=== PATIENT | male | born 1995 | race Caucasian/White ===

== ENCOUNTER 2017-01-22 08:17 | Emergency (ER) | payer OTHER ==
[2017-01-22 08:22] VITALS: BP 130/58; PULSE 88; TEMP 99.3; BMI 36.0
--- NOTE | 2017-01-22 08:46 | PDOC ---
History of Present Illness - General Chief Complaint: Pain, Acute Stated Complaint: KNEE PAIN Time Seen by Provider: 01/22/17 08:39 History Source: Patient Exam Limitations: No Limitations - History of Present Illness Initial Comments: 01/22/17 09:25 CHIEF COMPLAINT: Left medial knee pain. HISTORY OF PRESENT ILLNESS: Patient is a 21 y/o male, On December 14, patient reports that [place]. Sustained injury to left medial knee states that area was hard and was seen by the nurse at his [employer] and told him he had "hematoma" patient reports area was getting better yesterday ran for the first time and pain increased with "stiffness" to area. Now patient unable to bear weight to area. Denies any shortness of breath, no chest pain, no calf pain. REVIEW OF SYSTEMS: GENERAL: Afebrile, A&O x3 RESPIRATORY: No cough, wheezing, or hemoptysis. CARDIAC: No CP or SOB MUSCULOSKELETAL: Pain to left medial and posterior knee SKIN : Erythema to the left medial knee, with hardenned area, edema to same, no bruising, no deformity. NEUROLOGICAL: Denies any numbness or tingling. PHYSICAL EXAM: GENERAL: The patient is awake, alert, and fully oriented, in no acute distress. HEAD: Normal with no signs of trauma. RESPIRATORY: Lungs clear bilaterally no rhonchi, rales, or wheezes CARDIAC: S1-S2 audible, no murmur rub or gallop EXTREMITIES: Decreased range of motion to left knee related to pain, no fluid appreciated, no bulge sign. No pain to superior or inferior patella. Negative drop test. Negative posterior leg test. No joint laxity noted, no ecchymosis, no deformity, no abrasions ,no edema. +3 popliteal pulse. Negative Homans sign. No calf pain or tenderness, Erythema and palpable hardened area to the left medial knee. MUSCULOSKELETAL: No spinal point tenderness. SKIN: Warm, Dry, normal turgor, no erythema, edema, hardened area to the left medial knee, no bruising. Past History - Past Medical History Allergies/Adverse Reactions: Allergies Allergy/AdvReac Type Severity Reaction Status Date / Time No Known Allergies Allergy Verified 01/22/17 08:24 Home Medications: Ambulatory Orders Oxycodone HCl/Acetaminophen [Percocet 5-325 mg Tablet] 1 - 2 tab PO Q4H #20 tablet MDD 12 01/22/17 Other medical history: PATIENT DENIES MEDICAL HISTORY - Surgical History Appendectomy: Yes - Psycho/Social/Smoking Cessation Hx Suicidal Ideation: No Smoking History: Never smoked Hx Alcohol Use: No Drug/Substance Use Hx: No *Physical Exam - Vital Signs Last Vital Signs Temp Pulse Resp BP Pulse Ox 99.3 F 88 18 130/58 97 01/22/17 08:19 01/22/17 08:19 01/22/17 08:19 01/22/17 08:19 01/22/17 08:19 ED Treatment Course - RADIOLOGY Radiology Studies Ordered: Category Date Time Status KNEE 3 POS-LEFT [RAD] Stat Radiology 01/22/17 08:40 Ordered Medical Decision Making - Medical Decision Making 01/22/17 08:45 A/P : Left medial knee pain, hardened area. Hematoma vs DVT. Xray US 01/22/17 12:52 There is a fluid collection noted to left medial knee via ultrasound as per Dr. Kelley, spoke to Miguel SONG for Dr. Cleveland wants patient to come over to office immediately upon discharge today we'll DC patient home, Karri Cleveland to review x-ray although wet read as negative. Percocet as needed for pain. I discussed the physical exam findings, ancillary test results and final diagnoses with the patient. I answered all of the patient's questions. The patient was satisfied with the care received and felt comfortable with the discharge plan and treatment plan. The patient will call to arrange follow-up and will return to the Emergency Department with any new, persistent or worsening symptoms. *DC/Admit/Observation/Transfer Diagnosis at time of Disposition: Traumatic hematoma of knee Qualifiers: Encounter type: initial encounter Laterality: left Qualified Code(s): S80.02XA - Contusion of left knee, initial encounter - Discharge Dispostion Disposition: HOME Condition at time of disposition: Good Admit: No - Prescriptions Prescriptions: Oxycodone HCl/Acetaminophen [Percocet 5-325 mg Tablet] 1 - 2 tab PO Q4H #20 tablet MDD 12 - Referrals Referrals: Manny Cleveland MD [Staff Physician] - Deyanira Weber MD [Primary Care Provider] - - Patient Instructions Additional Instructions: Please go immediately to the office of Dr. Cristofer across the street in the [facility], they're awaiting your arrival. - Post Discharge Activity Work/School Note: Back to School
== END 2017-01-22 11:09 | disposition home or self-care (01) ==
LOC: JERFT 08:17 → JER 08:17 → JERFT 11:09
DX: S80.02XA Contusion of left knee, initial encounter (principal); W13.8XXA Fall from, out of or through other building or structure, initial encounter; Y93.89 Activity, other specified; Y92.410 Unspecified street and highway as the place of occurrence of the external cause
CPT/HCPCS: 73562-TC-LT; 93971-TC; 99281-25

== ENCOUNTER 2017-01-30 10:28 | Emergency (ER) | payer OTHER ==
[2017-01-30 10:48] VITALS: BP 127/78; PULSE 78; TEMP 98.3; BMI 36.0
[2017-01-30] MEDS ORDERED: LIDOCAINE HCL 1%, 10 MG/ML (50 mL VIAL) SQ ONE (11:14)
[2017-01-30] MEDS ORDERED: LIDOCAINE HCL/PF 1% SDV 5ML VIAL ONE (11:16)
[2017-01-30] MEDS ORDERED: SULFAMETHOXAZOLE/TRIMETHOPRIM 800MG/160MG D.S. TABLET PO ONE (11:45)
[2017-01-30] MEDS ORDERED: CEPHALEXIN MONOHYDRATE 500 MG CAPSULE (UD) PO ONE (11:45)
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
[2017-01-30] MEDS ORDERED: SULFAMETHOXAZOLE/TRIMETHOPRIM 800MG/160MG D.S. TABLET ONE (11:54)
[2017-01-30] MEDS ORDERED: CEPHALEXIN MONOHYDRATE 250 MG CAPSULE (FP) ONE (12:08)
== END 2017-01-30 12:14 | disposition home or self-care (01) ==
LOC: JER 10:28
PROC: 0H9LXZZ Drainage of Left Lower Leg Skin, External Approach (ICD-10-PCS; principal; 2017-01-30)
DX: L02.416 Cutaneous abscess of left lower limb (principal)
CPT/HCPCS: 10060; 87070; 87186; 87205; 99281-25

== ENCOUNTER 2017-02-01 08:59 | Emergency (ER) | payer OTHER ==
[2017-02-01 09:10] VITALS: BP 146/65; PULSE 59; TEMP 98.4; BMI 36.0
--- NOTE | 2017-02-01 10:41 | PDOC ---
Suture Removal/Wound Check HPI - History of Present Illness Chief Complaint: Revisit,Wound Recheck Stated Complaint: PACKAGE REMOVAL Time Seen by Provider: 02/01/17 10:17 History Source: Yes: Patient Exam Limitations: Yes: No Limitations Treated at: [facility] Date of Last ED visit: 01/30/17 - Previous ED Treatment Type of procedure performed on last visit: Yes: I&D of Abscess Tetanus Immunization: Yes: Up to Date Antibiotics Prescribed: Yes Past History - Past Medical History Allergies/Adverse Reactions: Allergies No Known Allergies Allergy (Verified 02/01/17 09:07) Home Medications: Ambulatory Orders Oxycodone HCl/Acetaminophen [Percocet 5-325 mg Tablet] 1 - 2 tab PO Q4H #20 tablet MDD 12 01/22/17 Cephalexin [Keflex] 500 mg PO TID #21 capsule NS MDD 3 01/30/17 Sulfamethoxazole/Trimethoprim [Bactrim Ds -] 1 tab PO BID #14 tablet 01/30/17 - Immunization History Tetanus Status: Unknown - Social History Smoking Status: Never smoked Suture Removal/Wound Check PE - Physical Exam Laceration/Wound Check Symptoms: reports: Pain, Improved. denies: Discharge, Bleeding Comments: 02/01/17 10:43 pt states wound has improved, redness and leg tightness has decreased pt denies any fever Current Severity Level: Moderate Maximum Severity Level: Severe Location of Laceration/Wound: left: Leg (lower medial calf area ) Pain Radiation: None *Review of Systems - Review of Systems Able to Perform ROS?: Yes Constitutional: No: Symptoms Reported HEENTM: No: Symptoms Reported Respiratory: No: Symptoms reported Cardiac (ROS): No: Symptoms Reported ABD/GI: No: Symptoms Reported : No: Symptoms Reported Musculoskeletal: Yes: See HPI Procedures - Additional Procedures Progress: 02/01/17 10:44 packing removed from wound on left lower leg, no drainage, scant serous on the gauze re-dressed with sterile bandage Medical Decision Making - Medical Decision Making 02/01/17 10:35 cc: packing removal left lower leg abscess seen 2 days ago in ER packing removed scant serous drainage, wound is well healing no pus drainage or eschar wound redressed with sterile gauze I spoke with wound care clinic at this hospital and pt can be seen at 12 pm on February 08 patient aware of the appointment pt also is followed by ortho I will have pt follow with them this week continue antibiotics and pain meds elevate the leg 02/01/17 10:37 02/01/17 10:44 *DC/Admit/Observation/Transfer Diagnosis at time of Disposition: Visit for wound check - Referrals Referrals: Deyanira Weber MD [Primary Care Provider] - Manny Cleveland MD [Staff Physician] - - Patient Instructions Additional Instructions: continue the antibiotics and the pain medication elevate the leg follow with this week call today to make appointment you also have an appointment for February 08 at 12 pm in the wound care clinic [facility] if you are unable to make the appointment call them to change it at [phone]
[2017-02-01] MEDS ORDERED: OXYCODONE/APAP 5/325MG COMBO TABLET ONE (10:50)
[2017-02-01] MEDS ORDERED: OXYCODONE/APAP 5/325MG COMBO TABLET PO ONE (11:22)
== END 2017-02-01 11:21 | disposition home or self-care (01) ==
LOC: JERFT 08:59
DX: Z48.01 Encounter for change or removal of surgical wound dressing (principal)
CPT/HCPCS: 99281-25

== ENCOUNTER 2017-02-05 15:08 | Emergency (ER) | payer OTHER ==
[2017-02-05 15:15] VITALS: BP 137/71; PULSE 68; TEMP 98.5; BMI 34.3
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
== END 2017-02-05 17:04 | disposition home or self-care (01) ==
LOC: JERFT 15:08
DX: Z09 Encounter for follow-up examination after completed treatment for conditions other than malignant neoplasm (principal)
CPT/HCPCS: 99281-25

== ENCOUNTER 2017-09-22 13:48 | Emergency (ER) | payer OTHER ==
[2017-09-22 14:31] VITALS: BP 123/76; PULSE 89; TEMP 99.5; BMI 36.8
--- NOTE | 2017-09-22 14:31 | PDOC ---
Rapid Medical Evaluation Time Seen by Provider: 09/22/17 14:28 Medical Evaluation: Allergies Allergy/AdvReac Type Severity Reaction Status Date / Time No Known Allergies Allergy Verified 02/05/17 15:16 09/22/17 14:28 I have performed a brief in-person evaluation of this patient. The patient presents with a chief complaint of: Sore throat w/ cough, pleuritic CP and fever x 2 days. No sob. No Pertinent physical exam findings:stable w/ unremarkable exam I have ordered the following:nothing The patient will proceed to the ED for further evaluation.
[2017-09-22] MEDS ORDERED: ACETAMINOPHEN 500 MG TABLET (FP) PO ONE (16:05)
[2017-09-22] MEDS ORDERED: ACETAMINOPHEN 500 MG TABLET (FP) ONE (16:09)
--- NOTE | 2017-09-22 16:20 | PDOC ---
History of Present Illness - General Chief Complaint: Sore Throat Stated Complaint: THROAT PAIN Time Seen by Provider: 09/22/17 14:28 History Source: Patient Exam Limitations: No Limitations - History of Present Illness Initial Comments: 09/22/17 16:17 This is a 21-year-old fully immunized gentleman without significant past medical history of presents to emergency department with 2 days of sore throat, nasal congestion, chills, rhinorrhea, sneezing, coughing with green sputum, fatigue, body aches, retching. He denies anorexia, vomiting, diarrhea, abdominal pain, headaches, blurry vision. 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 He does not remember any of his students experiencing any symptoms. PMH: Denies PSH: Denies NKDA Does not take medication Tobacco: Denies EtOH: Denies Drugs: Denies Past History - Past Medical History Allergies/Adverse Reactions: Allergies Allergy/AdvReac Type Severity Reaction Status Date / Time No Known Allergies Allergy Verified 09/22/17 14:28 Home Medications: Ambulatory Orders Oseltamivir Phosphate [Tamiflu -] 75 mg PO BID #10 capsule 09/22/17 CVA: No COPD: No - Surgical History Appendectomy: Yes - Immunization History Immunization Up to Date: Yes - Suicide/Smoking/Psychosocial Hx Smoking History: Never smoked Have you smoked in the past 12 months: No Information on smoking cessation initiated: No Hx Alcohol Use: No Drug/Substance Use Hx: No Substance Use Type: None Review of Systems - Review of Systems Able to Perform ROS?: Yes Is the patient limited Sami proficient: No Constitutional: Yes: See HPI HEENTM: Yes: See HPI Respiratory: Yes: See HPI Cardiac (ROS): No: Symptoms Reported ABD/GI: Yes: See HPI : No: Symptoms Reported Musculoskeletal: No: Symptoms Reported Integumentary: No: Symptoms Reported Neurological: No: Symptoms reported *Physical Exam - Vital Signs Last Vital Signs Temp Pulse Resp BP Pulse Ox 99.5 F 89 16 123/76 96 09/22/17 14:28 09/22/17 14:28 09/22/17 14:28 09/22/17 14:28 09/22/17 14:28 - Physical Exam General Appearance: Yes: Appropriately Dressed. No: Apparent Distress HEENT: positive: TMs Normal, Pharyngeal Erythema, Tonsillar Exudate, Tonsillar Erythema, Nasal Congestion, Rhinorrhea. negative: Sinus Tenderness Neck: positive: Trachea midline, Supple Respiratory/Chest: positive: Lungs Clear, Normal Breath Sounds. negative: Respiratory Distress, Accessory Muscle Use Cardiovascular: positive: Regular Rhythm, Regular Rate. negative: Murmur Gastrointestinal/Abdominal: positive: Normal Bowel Sounds, Soft. negative: Tender Musculoskeletal: positive: Normal Inspection. negative: CVA Tenderness Extremity: positive: Normal Inspection Integumentary: positive: Normal Color, Dry, Warm Neurologic: positive: Fully Oriented, Alert, Normal Mood/Affect, Normal Response , Motor Strength 12/25 ED Treatment Course - Medications Given in the ED: ED Medications Discontinued Medications Generic Name Dose Route Start Last Admin Trade Name Freq PRN Reason Stop Dose Admin Acetaminophen 1,000 mg 09/22/17 16:05 09/22/17 16:11 Tylenol - PO 09/22/17 16:06 1,000 mg ONCE ONE Administration Medical Decision Making - Medical Decision Making 09/22/17 16:14 A/P: 21-year-old without past medical history with 2 days of sore throat, nasal congestion, chills, rhinorrhea, sneezing, coughing with green sputum, fatigue, body aches and wretching. Oropharynx reveals pharyngeal erythema, tonsillar erythema, tonsillar exudate, 3 + tonsils swelling. Submandibular lymphadenopathy present. No cervical lymphadenopathy present. Otherwise normal exam Influenza testing Rapid strep testing Tylenol 1 g orally now Reassess 09/22/17 16:50 Influenza testing positive for influenza B. Patient feels better at present. I will prescribed Tamiflu 75 mg twice a day for 5 days. Discharge I discussed the physical exam findings, ancillary test results and final diagnoses with the patient. I answered all of the patient's questions. The patient was satisfied with the care received and felt comfortable with the discharge plan and treatment plan. The patient will call his doctor within 96 hours to arrange follow-up and will return to the Emergency Department with any new, persistent or worsening symptoms. *DC/Admit/Observation/Transfer Diagnosis at time of Disposition: Influenza B - Discharge Dispostion Disposition: HOME Condition at time of disposition: Stable Admit: No - Prescriptions Prescriptions: Oseltamivir Phosphate [Tamiflu -] 75 mg PO BID #10 capsule - Referrals Referrals: Roland Lester MD [Staff Physician] - - Patient Instructions Additional Instructions: Rest, drink lots of fluids: Teas, water, soups, Pedialyte Saltwater gargles Steamy showers/seem to face break up mucus Avoid contact with others until fevers and cough resolved Lots of handwashing and good hygiene Continue [id number] medications for symptomatic relief Tylenol or Motrin for fever and pain Tamiflu 75mg twice a day for 5 days. Followup with private physician in one to 2 days as needed Return to emergency department for worsened symptoms, fevers, dehydration - Post Discharge Activity
== END 2017-09-22 16:55 | disposition home or self-care (01) ==
LOC: JERFT 13:48
DX: J10.1 Influenza due to other identified influenza virus with other respiratory manifestations (principal)
CPT/HCPCS: 87070; 87430; 87804; 99281-25

== ENCOUNTER 2020-05-26 02:04 | Emergency (ER) | payer OTHER ==
--- OUTSIDE RECORDS SUMMARY | 2020-05-26 02:13 | XMS ---
:1995 Author Organization [facility] Support Name Relationship Address Phone AMANDEEP MADRIGAL Unavailable [address] [id number] [place] [address] CHANI GONZALEZ BROTHER [address] [place] [address] Re-disclosure Warning The records that you are about to access may contain information from federally- assisted alcohol or drug abuse programs. If such information is present, then the following federally mandated warning applies: This information has been disclosed to you from records protected by federal confidentiality rules (42 CFR part 2). The federal rules prohibit you from making any further disclosure of this information unless further disclosure is expressly permitted by the written consent of the person to whom it pertains or as otherwise permitted by 42 CFR part 2. A general authorization for the release of medical or other information is NOT sufficient for this purpose. The Federal rules restrict any use of the information to criminally investigate or prosecute any alcohol or drug abuse patient.The records that you are about to access may contain highly sensitive health information, the redisclosure of which is protected by Article 27-F of the [facility] Public Health law. If you continue you may haveaccess to information: Regarding HIV / AIDS; Provided by facilities licensed or operated by the [facility] Office of Mental Health; or Provided by the [facility] Office for People With Developmental Disabilities. If such information is present, then the following [facility] mandated warning applies: This information has been disclosed to you from confidential records which are protected by state law. State law prohibits you from making any further disclosure of this information without the specific written consent of the person to whom it pertains, or as otherwise permitted by law. Any unauthorized further disclosure in violation of state law may result in a fine or correction sentence or both. A general authorization for the release of medical or other information is NOT sufficient authorization for further disclosure. Insurance Providers Payer name Policy type Policy ID Covered Covered alliance party's Policy P katie / Coverage alliance party ID relationship to Ash Inf ormation type ash JEANNINE [id number] [facility] NON CAP
[2020-05-26 02:30] VITALS: BP 164/105; PULSE 116; TEMP 98; BMI 26.6
[2020-05-26] MEDS ORDERED: LABETALOL HCL 5 MG/1 ML (100MG/20 ML VIAL) IVPUSH ONE (02:37)
--- NOTE | 2020-05-26 02:37 | PDOC ---
Attending Attestation - Resident Resident Name: Dontae Herrmann - ED Attending Attestation I have performed the following: I have examined & evaluated the patient, The case was reviewed & discussed with the resident, I agree w/resident's findings & plan - HPI HPI: 05/26/20 03:33 PT COMES WITH CHEST PAIN. HE IS SWEATING HE HAS LEFT ABD PAIN HE HAS BACK PAIN PT IS MORBIDLY OBESE AND STRESSED AND HE STATES THAT HE HAS ANXIETY BP IS 200S ON ARRIVAL AFTER A FEW MINUTES BP COMES DOWN TO 180s AFTER A SLNTG IT IS 140S AFTER MORPHINE AND BETA GIANNA IV IT IS 120S PT IS FEELING BETTER AND STATES THAT HE HAS BEEN EXERCISING THOUGH HE EATS UNWELL: DONUT, BEEF GERMAN SOUP AND FISH TODAY PT HAD APPENDECTOMY A CHILD NO PMHX - Physicial Exam PE: 05/26/20 03:35 OBESE AFEBRILE HEART RRR LUNGS CTAB ABD SOFT NT ND LEFT SIDED ABD PAIN NO FLANK PAIN NEURO EXAM NORMAL - Medical Decision Making 05/26/20 03:38 PT FEELING BETTER WE WILL GET CTA TO R/O AORTIC ANEURYSM CBC NORMAL CHEM PENDING 05/26/20 05:01 Patient Name: PAM GONZALEZ THIS IS A PRELIMINARY REPORT DATE OF SERVICE: 2020-05-26 03:34:30 IMAGES: [id number] EXAM: CT of the chest abdomen and pelvis without contrast and CT angiography of the chest abdomen and pelvis HISTORY: Rule out dissection COMPARISON: None. FINDINGS: Chest: Negative for thoracic aortic aneurysm or dissection. Lungs are clear of acute disease. No pulmonary infiltrates. No pleural effusions. No pneumothorax or pneumomediastinum. Heart size is normal. No pericardial effusions. Osseous structures are intact. Abdomen pelvis: Negative for abdominal aortic aneurysm or dissection. The major visceral vessels that emanate from the abdominal aorta are patent. Fatty mildly enlarged liver. Normal spleen. Normal pancreas. Normal adrenal glands. Normal gallbladder. Normal kidneys urinary tracts and urinary bladder. No bowel obstruction or inflammation. No free intraperitoneal air or free fluid. Osseous structures are intact. Discharge - Discharge Information Problems reviewed: Yes Clinical Impression/Diagnosis: Fatty liver Condition: Improved Disposition: HOME - Follow up/Referral Referrals: Deyanira Weber MD [Primary Care Provider] - - Patient Discharge Instructions Patient Printed Discharge Instructions: DI for Nonalcoholic Fatty Liver Disease, Eating a Diet Rich in Fruits and Vegetables - Post Discharge Activity
[2020-05-26] MEDS ORDERED: morphine CARPU-JECT 2 MG/1 ML DISP.SYRIN IVPUSH ONE (02:38)
[2020-05-26] MEDS ORDERED: NITROGLYCERIN SUBLINGUAL 1/150 0.4 MG TAB SL ONE (02:45)
--- NOTE | 2020-05-26 03:06 | PDOC ---
History of Present Illness - General Chief Complaint: Pain, Acute Stated Complaint: ABDOMINAL PAIN Time Seen by Provider: 05/26/20 02:09 History Source: Patient Exam Limitations: No Limitations - History of Present Illness Initial Comments: 05/26/20 03:01 24M w/o PMH presenting with sudden onset epigastric pain radiating straight to the back for about 3 hours. Described as a tightness. Denies chest pain, sob, headache, lightheadedness, n/v/d. Denies etoh, smoking, ilicit drug use. PSHx - appendectomy Past History - Medical History Allergies/Adverse Reactions: Allergies Allergy/AdvReac Type Severity Reaction Status Date / Time No Known Allergies Allergy Verified 05/26/20 02:18 Home Medications: Ambulatory Orders Oseltamivir Phosphate [Tamiflu -] 75 mg PO BID #10 capsule 09/22/17 CVA: No COPD: No - Surgical History Appendectomy: Yes - Immunization History Immunization Up to Date: Yes - Psycho-Social/Smoking History Smoking History: Never smoked Have you smoked in the past 12 months: No Information on smoking cessation initiated: No - Substance Abuse Hx (Audit-C & DAST Scrn) How often the patient has a drink containing alcohol: Never Score: In Men: 4 or > Positive; In Women: 3 or > Positive: 0 Screen Result (Pos requires Nsg. Audit-10AR): Negative In the last yr the pt used illegal drug/Rx for NonMed reason: No Score: Yes response is considered Positive: 0 Screen Result (Positive result requires Nsg. DAST-10): Negative Review of Systems - Review of Systems Comments:: CONSTITUTIONAL: Denies F / C HEENT: Denies lightheadedness, dizziness, sore throat, rhinorrhea RESP: Denies SOB, cough CARD: Denies chest pain GI: +epigastric pain. Denies N / V / D, bloody stool, inability to tolerate PO : Denies dysuria, hematuria, frequency NEURO: Denies numbness, tingling, weakness MSK: +back pain SKIN: Denies rashes *Physical Exam - Vital Signs Last Vital Signs Temp Pulse Resp BP Pulse Ox 98.0 F 116 H 20 164/105 H 98 05/26/20 02:18 05/26/20 02:18 05/26/20 02:18 05/26/20 02:18 05/26/20 02:18 - Physical Exam GEN: uncomfortable, diaphoretic, in moderate distress, AAOx3. HEENT: NC/AT, EOMI, PERRL. No facial asymmetry. Normal voice. Supple neck w/ FROM. CV: S1/S2, RRR, no m/r/g LUNG: CTAB, no wheezes, crackles, rales, rhonchi. GI: Soft, ndnt, +BS, no guarding, no rebound. MSK: 2+ distal pulses. No obvious deformities of all extremities. SKIN: Warm, dry, no rashes appreciated. PSYCH: Normal mood and affect. NEURO: Moving all extremities well. ambulates w/ normal gait ED Treatment Course - LABORATORY CBC & Chemistry Diagram: 05/26/20 03:08 05/26/20 03:08 Medical Decision Making - Medical Decision Making 24M with sudden onset epigastric pain radiating to the back x3 hours. DDX - pancreatitis, AoD, AAA; consider PUD, gastritis, ACS; unlikely biliary - CBC, CMP, Cardiac, Lipase, coags, T&S - CTA - morphine, labetalol, nitroglycerin - EKG 02:29 HR 111 sinus tachycardia; intervals and axis wnl, no LAYLA/D, no TWI 05/26/20 05:[address] IOC IMPRESSION as follows EXAM: CT of the chest abdomen and pelvis without contrast and CT angiography of the chest abdomen and pelvis HISTORY: Rule out dissection COMPARISON: None. FINDINGS: Chest: Negative for thoracic aortic aneurysm or dissection. Lungs are clear of acute disease. No pulmonary infiltrates. No pleural effusions. No pneumothorax or pneumomediastinum. Heart size is normal. No pericardial effusions. Osseous structures are intact. Abdomen pelvis: Negative for abdominal aortic aneurysm or dissection. The major visceral vessels that emanate from the abdominal aorta are patent. Fatty mildly enlarged liver. Normal spleen. Normal pancreas. Normal adrenal glands. Normal gallbladder. Normal kidneys urinary tracts and urinary bladder. No bowel obstruction or inflammation. No free intraperitoneal air or free fluid. Osseous structures are intact. One or more of the following dose reduction techniques were used: automated exposure control, adjustment of the mA and/or kV according to patient size, use of iterative reconstructive technique. THIS DOCUMENT HAS BEEN ELECTRONICALLY SIGNED Dontae Samaniego MD 05/26/2020 04:58 SAHRA Zeng Please call [facility] [phone] ([phone]) with questions. INTERPRETING RADIOLOGIST: Dontae Samaniego MD Electronically Signed: May 26, 2020 04:59AM EDT patient was discharged. Discharge - Discharge Information Problems reviewed: Yes Clinical Impression/Diagnosis: Fatty liver Condition: Improved Disposition: HOME - Follow up/Referral Referrals: Deyanira Weber MD [Primary Care Provider] - - Patient Discharge Instructions Patient Printed Discharge Instructions: Eating a Diet Rich in Fruits and Vegetables, DI for Nonalcoholic Fatty Liver Disease - Post Discharge Activity
[2020-05-26 03:21] LABS: BASO % 0.3 % (0-2.0); EOS % 1.3 % (0-4.5); HEMATOCRIT 47.8 % (35.4-49); HEMOGLOBIN 16.2 GM/dL (11.7-16.9); LYMPH % 14.2 % (8-40); MCH 28.1 pg (25.7-33.7); MCHC 33.9 g/dl (32.0-35.9); MEAN PLT VOLUME 9.7 fl (7.5-11.1); MONO % 5.3 % (3.8-10.2); NEUT % 78.9 % (42.8-82.8); PLATELET COUNT 266 K/MM3 (134-434); RBC 5.76 M/mm3 (4.00-5.60); RDW 13.5 % (11.9-15.9); WHITE BLOOD COUNT 16.2 K/mm3 (4.0-10.0)
[2020-05-26 03:49] LABS: ALBUMIN 4.1 g/dl (3.4-5.0); ALK PHOS 138 U/L (45-117); ANION GAP 8 MMOL/L (8-16); BILIRUBIN,TOTAL 0.5 mg/dL (0.2-1); CALCIUM 8.9 mg/dL (8.5-10.1); CHLORIDE 104 mmol/L (98-107); CO2 28 mmol/L (21-32); CREATININE 0.9 mg/dL (0.55-1.3); GLUCOSE,RANDOM 114 mg/dL (74-106); LIPASE 93 U/L (73-393); SGOT/AST 76 U/L (15-37); SGPT/ALT 98 U/L (13-61); SODIUM 140 mmol/L (136-145)
[2020-05-26 03:52] LABS: INR 1.1 (0.83-1.09)
--- NOTE | 2020-05-26 19:55 | EKG ---
Test Reason : Blood Pressure : / mmHG Vent. Rate : 111 BPM Atrial Rate : 111 BPM P-R Int : 154 ms QRS Dur : 080 ms QT Int : 330 ms P-R-T Axes : 034 049 014 degrees QTc Int : 448 ms SINUS TACHYCARDIA OTHERWISE NORMAL ECG NO PREVIOUS ECGS AVAILABLE Confirmed by LOTUS MARCUM MD ([id number]) on 05/26/2020 7:54:37 PM Referred By: Confirmed By:LOTUS MARCUM MD
== END 2020-05-26 05:23 | disposition home or self-care (01) ==
LOC: JER 02:04
PROC: 3E033NZ Introduction of Analgesics, Hypnotics, Sedatives into Peripheral Vein, Percutaneous Approach (ICD-10-PCS; principal; 2020-05-26)
PROC: 3E033GC Introduction of Other Therapeutic Substance into Peripheral Vein, Percutaneous Approach (ICD-10-PCS; 2020-05-26)
DX: K76.0 Fatty (change of) liver, not elsewhere classified (principal)
CPT/HCPCS: 36415; 71275-TC; 74174-TC; 80053; 82550; 83690; 84484; 85025; 85610; 86850; 86900; 86901; 93005; 93010; 99285-25; Q9967

== ENCOUNTER 2022-02-04 06:20 | Emergency (ER) | payer OTHER ==
[2022-02-04 07:04] VITALS: BP 132/92; PULSE 67; TEMP 97.8; BMI 46.3
[2022-02-04] MEDS ORDERED: LIDOCAINE 5% TOPICAL PATCH TP ONE (08:19)
[2022-02-04] MEDS ORDERED: KETOROLAC TROMETHAMINE 30 MG/1 ML VIAL IM ONE (08:20)
[2022-02-04] MEDS ORDERED: CYCLOBENZAPRINE HCL 10 MG TABLET (FP) PO ONE (08:20)
[2022-02-04] MEDS ORDERED: CYCLOBENZAPRINE HCL 10 MG TABLET (FP) ONE (08:23)
[2022-02-04] MEDS ORDERED: KETOROLAC TROMETHAMINE 30 MG/1 ML VIAL ONE (08:23)
[2022-02-04] MEDS ORDERED: LIDOCAINE 5% TOPICAL PATCH ONE (08:23)
== END 2022-02-04 09:04 | disposition home or self-care (01) ==
LOC: JER 06:20
PROC: 3E023GC Introduction of Other Therapeutic Substance into Muscle, Percutaneous Approach (ICD-10-PCS; principal; 2022-02-04)
DX: S46.012A Strain of muscle(s) and tendon(s) of the rotator cuff of left shoulder, initial encounter (principal); Y99.9 Unspecified external cause status
CPT/HCPCS: 99284-25

== ENCOUNTER 2022-12-10 04:59 | Inpatient (IN) | payer BC ==
[2022-12-10 05:20] VITALS: BMI 41.7
[2022-12-10] MEDS ORDERED: HYDROmorphone HCl 2 MG/ML VIAL IVPUSH ONE (05:31)
[2022-12-10] MEDS ORDERED: PIPERACILLIN/TAZOB 3.375 GM 3.375 GM in DEXTROSE 5%-WATER - 50 ML IVPB ONE (05:31)
[2022-12-10] MEDS ORDERED: ONDANSETRON 4 MG/2 ML VIAL IVPUSH ONE (05:31)
[2022-12-10] MEDS ORDERED: LACTATED RINGERS SOLUTION 1000 ML INFUS.BAG IV ONE (05:35)
[2022-12-10] MEDS ORDERED: HYDROmorphone HCl 2 MG/ML VIAL ONE (05:47)
[2022-12-10] MEDS ORDERED: ONDANSETRON 4 MG/2 ML VIAL ONE ×2 (05:47→11:39)
[2022-12-10] MEDS ORDERED: PIPERACILLIN/TAZOB 3.375 GM 3.375 GM/50 ML BAG IVPB ONE (06:01)
[2022-12-10 06:31] LABS: BASO % 0.3 % (0-2.0); EOS % 1.5 % (0-4.5); HEMATOCRIT 43.9 % (35.4-49); LYMPH % 16.5 % (8-40); MCH 27.9 pg (25.7-33.7); MCHC 34.1 g/dl (32.0-35.9); MEAN CELL VOLUME 81.7 fl (80-96); MEAN PLT VOLUME 10.5 fl (7.5-11.1); NEUT % 76.7 % (42.8-82.8); PLATELET COUNT 254 10^3/uL (134-434); RBC 5.38 M/mm3 (4.00-5.60); RDW 13.6 % (11.9-15.9); WHITE BLOOD COUNT 14.2 K/mm3 (4.0-10.0)
[2022-12-10 06:39] LABS: INR 1.25 (0.83-1.09); PROTHROMBIN TIME (PATIENT) 14.5 SEC (9.7-13.0)
[2022-12-10 06:48] LABS: CALCIUM 8.9 mg/dL (8.5-10.1)
[2022-12-10 06:49] LABS: ALBUMIN 4.1 g/dl (3.4-5.0); BLOOD UREA NITROGEN 17.8 mg/dL (7-18)
[2022-12-10 06:52] LABS: CREATININE 0.8 mg/dL (0.55-1.3)
[2022-12-10 06:53] LABS: TOT PROT 6.7 g/dl (6.4-8.2)
[2022-12-10 06:54] LABS: BILIRUBIN,TOTAL 0.9 mg/dL (0.2-1)
[2022-12-10] MEDS ORDERED: CEFTRIAXONE 1 GM/50 ML BAG ONE (09:31)
[2022-12-10] MEDS ORDERED: LACTATED RINGERS SOLUTION 1,000 ML/1,000 ML INFUS.BAG IV SCH (10:30)
[2022-12-10] MEDS ORDERED: ONDANSETRON 4 MG/2 ML VIAL IVPUSH PRN ×2 (10:51→14:55)
[2022-12-10] MEDS ORDERED: oxyCODONE HCL 5 MG TABLET PO PRN (10:51)
[2022-12-10] MEDS ORDERED: BUPIVACAINE HCL/PF 0.25% (2.5MG/ML) 10 ML VIAL ONE ×2 (11:00→14:09)
[2022-12-10] MEDS ORDERED: PROPOFOL 40 ML ONE (11:17)
[2022-12-10] MEDS ORDERED: ROCURONIUM BROMIDE 50 MG/5 ML SYRINGE ONE ×2 (11:18→13:10)
[2022-12-10] MEDS ORDERED: SUCCINYLCHOLINE CHLORIDE 200 MG/10 ML SYRINGE ONE ×2 (11:18→14:29)
[2022-12-10] MEDS ORDERED: KETOROLAC TROMETHAMINE 30 MG/1 ML VIAL ONE (11:39)
[2022-12-10] MEDS ORDERED: DEXAMETHASONE SOD PHOSPHATE 4 MG/1 ML VIAL ONE (11:39)
[2022-12-10] MEDS ORDERED: BUPIVACAINE HCL/PF 0.25% (2.5MG/ML) 10 ML VIAL IJ ONE ×3 (11:46)
[2022-12-10] MEDS ORDERED: GLYCOPYRROLATE 0.2 MG/1 ML VIAL ONE ×2 (14:15)
[2022-12-10] MEDS ORDERED: NEOSTIGMINE METHYLSULFATE 0.5 MG/1 ML - 10 ML MDV ONE (14:15)
[2022-12-10] MEDS: LACTATED RINGERS SOLUTION 1,000 ML/1,000 ML INFUS.BAG IV SCH ×2 (16:10→18:58)
[2022-12-10] MEDS: oxyCODONE HCL 5 MG TABLET PO PRN (17:44)
[2022-12-10] MEDS ORDERED: PNEUMOC 20-VAL CONJ-DIP CRM/PF 0.5 ML SYRINGE IM ONE (18:19)
[2022-12-10] MEDS: ACETAMINOPHEN 500 MG TABLET (FP) PO SCH (21:49)
[2022-12-10] MEDS: KETOROLAC TROMETHAMINE 30 MG/1 ML VIAL IVPUSH SCH (21:50)
[2022-12-11] MEDS: LACTATED RINGERS SOLUTION 1,000 ML/1,000 ML INFUS.BAG IV SCH ×2 (00:39→14:38)
[2022-12-11] MEDS: KETOROLAC TROMETHAMINE 30 MG/1 ML VIAL IVPUSH SCH ×2 (02:23→10:31)
[2022-12-11] MEDS: ACETAMINOPHEN 500 MG TABLET (FP) PO SCH ×2 (02:24→10:25)
[2022-12-11] MEDS: oxyCODONE HCL 5 MG TABLET PO PRN ×2 (06:58→14:37)
[2022-12-11 07:24] LABS: BASO % 0.5 % (0-2.0); EOS % 0.4 % (0-4.5); HEMATOCRIT 38.3 % (35.4-49); HEMOGLOBIN 13.1 GM/dL (11.7-16.9); LYMPH % 22.7 % (8-40); MCH 27.9 pg (25.7-33.7); MCHC 34.3 g/dl (32.0-35.9); MEAN CELL VOLUME 81.4 fl (80-96); MEAN PLT VOLUME 10.3 fl (7.5-11.1); MONO % 8.7 % (3.8-10.2); NEUT % 67.7 % (42.8-82.8); PLATELET COUNT 225 10^3/uL (134-434); RBC 4.71 M/mm3 (4.00-5.60); RDW 13.8 % (11.9-15.9); WHITE BLOOD COUNT 7.4 K/mm3 (4.0-10.0)
[2022-12-11 07:44] LABS: POTASSIUM 3.8 mmol/L (3.5-5.1)
[2022-12-11 07:50] LABS: BLOOD UREA NITROGEN 6.4 mg/dL (7-18)
[2022-12-11 07:52] LABS: CREATININE 0.7 mg/dL (0.55-1.3); PHOSPHOROUS 3.1 mg/dL (2.5-4.9)
[2022-12-11 07:53] LABS: TOT PROT 5.4 g/dl (6.4-8.2)
[2022-12-11 07:54] LABS: BILIRUBIN,TOTAL 4.2 mg/dL (0.2-1)
[2022-12-11 07:58] LABS: ALBUMIN 3.2 g/dl (3.4-5.0)
[2022-12-11] MEDS ORDERED: CEFTRIAXONE 1 GM in DEXTROSE 5%-WATER - 50 ML IVPB SCH (10:00)
[2022-12-11] MEDS: CEFTRIAXONE 1 GM in DEXTROSE 5%-WATER - 50 ML IVPB SCH (10:32)
[2022-12-11 11:58] LABS: EPI CELLS 1 /uL (0-25.1); HYALINE CASTS 0 /uL (0-3.1); PH,URINE 6.5 (5.0-8.0); URINE APPEARANCE CLEAR; URINE BILIRUBIN 3+ (NEGATIVE); URINE COLOR DK YELLOW; URINE GLUCOSE (UA) NEGATIVE (NEGATIVE); URINE KETONE TRACE (NEGATIVE); URINE LEUK ESTERASE TRACE (NEGATIVE); URINE NITRITE POSITIVE (NEGATIVE); URINE PROTEIN NEGATIVE (NEGATIVE); URINE RBC 29 /uL (0-23.9); URINE WBC 5 /uL (0-25.8)
[2022-12-11 14:02] LABS: URINE BACTERIA 5.9 /uL (0-1359)
[2022-12-11 17:10] LABS: ALBUMIN 3.5 g/dl (3.4-5.0)
[2022-12-11 17:12] LABS: BILIRUBIN,DIRECT 3.5 mg/dL (0.0-0.2)
[2022-12-11 17:14] LABS: BILIRUBIN,TOTAL 4.4 mg/dL (0.2-1); TOT PROT 5.8 g/dl (6.4-8.2)
[2022-12-11] MEDS ORDERED: ONDANSETRON 4 MG/2 ML VIAL IVPUSH ONE (20:10)
[2022-12-12] MEDS: oxyCODONE HCL 5 MG TABLET PO PRN ×3 (03:21→23:15)
[2022-12-12] MEDS: IBUPROFEN 600 MG TABLET (FP) PO PRN ×3 (03:44→23:45)
[2022-12-12 08:37] LABS: HEMATOCRIT 38.5 % (35.4-49); HEMOGLOBIN 12.5 GM/dL (11.7-16.9); MCH 27.1 pg (25.7-33.7); MCHC 32.5 g/dl (32.0-35.9); MEAN CELL VOLUME 83.2 fl (80-96); MEAN PLT VOLUME 10.7 fl (7.5-11.1); PLATELET COUNT 209 10^3/uL (134-434); RBC 4.63 M/mm3 (4.00-5.60)
[2022-12-12 08:43] LABS: WHITE BLOOD COUNT 20.5 K/mm3 (4.0-10.0)
[2022-12-12 08:44] LABS: POTASSIUM 4.2 mmol/L (3.5-5.1)
[2022-12-12 08:48] LABS: CALCIUM 8.7 mg/dL (8.5-10.1)
[2022-12-12 08:49] LABS: ALBUMIN 3.4 g/dl (3.4-5.0); BLOOD UREA NITROGEN 4.6 mg/dL (7-18); MAGNESIUM 1.9 mg/dL (1.8-2.4)
[2022-12-12 08:52] LABS: CREATININE 0.7 mg/dL (0.55-1.3)
[2022-12-12 08:54] LABS: TOT PROT 5.8 g/dl (6.4-8.2)
[2022-12-12] MEDS: CEFTRIAXONE 1 GM in DEXTROSE 5%-WATER - 50 ML IVPB SCH (10:09)
[2022-12-12 10:41] LABS: ANISOCYTOSIS 0; MACROCYTOSIS 0
[2022-12-12] MEDS: POLYETHYLENE GLYCOL (HEALTHYLAX) 3350 17 GM PACKET PO SCH (14:12)
[2022-12-12] MEDS ORDERED: DOCUSATE SODIUM 100 MG CAPSULE (FP) PO SCH (14:30)
[2022-12-12] MEDS: AMOX TR/POT CLAV 875MG/125MG TABLETS (FP) PO SCH (16:50)
[2022-12-13 10:19] LABS: BASO % 0.6 % (0-2.0); HEMATOCRIT 42.2 % (35.4-49); HEMOGLOBIN 14.4 GM/dL (11.7-16.9); LYMPH % 14.9 % (8-40); MCH 28.1 pg (25.7-33.7); MCHC 34.2 g/dl (32.0-35.9); MEAN CELL VOLUME 82.2 fl (80-96); MONO % 8.9 % (3.8-10.2); NEUT % 74.6 % (42.8-82.8); PLATELET COUNT 247 10^3/uL (134-434); RBC 5.14 M/mm3 (4.00-5.60); RDW 14.3 % (11.9-15.9); WHITE BLOOD COUNT 6.4 K/mm3 (4.0-10.0)
[2022-12-13 10:42] LABS: POTASSIUM 4.2 mmol/L (3.5-5.1)
[2022-12-13] MEDS: POLYETHYLENE GLYCOL (HEALTHYLAX) 3350 17 GM PACKET PO SCH (10:42)
[2022-12-13] MEDS: AMOX TR/POT CLAV 875MG/125MG TABLETS (FP) PO SCH (10:43)
[2022-12-13 10:47] LABS: ALBUMIN 3.7 g/dl (3.4-5.0); BLOOD UREA NITROGEN 5.4 mg/dL (7-18); CALCIUM 9.2 mg/dL (8.5-10.1)
[2022-12-13 10:50] LABS: CREATININE 0.6 mg/dL (0.55-1.3)
[2022-12-13 10:52] LABS: BILIRUBIN,TOTAL 4.8 mg/dL (0.2-1); TOT PROT 6.4 g/dl (6.4-8.2)
[2022-12-13] MEDS: IBUPROFEN 600 MG TABLET (FP) PO PRN (11:01)
[2022-12-13] MEDS ORDERED: ONDANSETRON 4 MG/2 ML VIAL IVPUSH PRN (14:43)
[2022-12-13] MEDS ORDERED: SODIUM CHLORIDE 1,000 ML IV SCH (14:45)
[2022-12-13] MEDS: CEFTRIAXONE 2 GM in DEXTROSE 5%-WATER 100 ML IVPB SCH (15:02)
[2022-12-13 15:10] LABS: BASO % 0.4 % (0-2.0); EOS % 0.7 % (0-4.5); HEMATOCRIT 43.5 % (35.4-49); HEMOGLOBIN 14.9 GM/dL (11.7-16.9); LYMPH % 11.5 % (8-40); MCH 28.3 pg (25.7-33.7); MCHC 34.3 g/dl (32.0-35.9); MEAN CELL VOLUME 82.6 fl (80-96); MONO % 6.7 % (3.8-10.2); NEUT % 80.7 % (42.8-82.8); PLATELET COUNT 252 10^3/uL (134-434); RBC 5.27 M/mm3 (4.00-5.60); RDW 14.2 % (11.9-15.9)
[2022-12-14 09:50] LABS: BASO % 0.4 % (0-2.0); EOS % 0.7 % (0-4.5); HEMOGLOBIN 15.1 GM/dL (11.7-16.9); LYMPH % 11.9 % (8-40); MCH 28.2 pg (25.7-33.7); MCHC 34.4 g/dl (32.0-35.9); MEAN CELL VOLUME 82.1 fl (80-96); MEAN PLT VOLUME 10.6 fl (7.5-11.1); MONO % 6.7 % (3.8-10.2); NEUT % 80.3 % (42.8-82.8); PLATELET COUNT 288 10^3/uL (134-434); RBC 5.36 M/mm3 (4.00-5.60); WHITE BLOOD COUNT 7.8 K/mm3 (4.0-10.0)
[2022-12-14] MEDS: CEFTRIAXONE 2 GM in DEXTROSE 5%-WATER 100 ML IVPB SCH (09:51)
[2022-12-14] MEDS: POLYETHYLENE GLYCOL (HEALTHYLAX) 3350 17 GM PACKET PO SCH (09:52)
[2022-12-14] MEDS: LIDOCAINE 5% TOPICAL PATCH TP SCH (10:00)
[2022-12-14 10:08] LABS: POTASSIUM 4.7 mmol/L (3.5-5.1)
[2022-12-14 10:13] LABS: ALBUMIN 3.8 g/dl (3.4-5.0); BLOOD UREA NITROGEN 6.4 mg/dL (7-18); CALCIUM 9.4 mg/dL (8.5-10.1)
[2022-12-14 10:16] LABS: CREATININE 0.7 mg/dL (0.55-1.3)
[2022-12-14 10:17] LABS: TOT PROT 6.8 g/dl (6.4-8.2)
[2022-12-14 10:23] LABS: BILIRUBIN,TOTAL 6.2 mg/dL (0.2-1)
[2022-12-14] MEDS: LACTATED RINGERS SOLUTION 1,000 ML/1,000 ML INFUS.BAG IV SCH ×2 (14:35→14:37)
[2022-12-14] MEDS: LIDOCAINE PATCH REMOVAL MC SCH (21:30)
[2022-12-15] MEDS: LACTATED RINGERS SOLUTION 1,000 ML/1,000 ML INFUS.BAG IV SCH (06:47)
[2022-12-15] MEDS ORDERED: FENTANYL CITRATE/PF 50 MCG/ML VIAL ONE ×2 (07:21→09:25)
[2022-12-15] MEDS ORDERED: MIDAZOLAM HCL 2 MG/2 ML SINGLE DOSE VIAL ONE (07:22)
[2022-12-15] MEDS ORDERED: INDOMETHACIN 50 MG RECTAL SUPPOSITORY PR ONE ×2 (08:48→10:00)
[2022-12-15] MEDS ORDERED: PHYTONADIONE 10 MG/1 ML AMP IVPB ONE (09:52)
[2022-12-15] MEDS ORDERED: LACTATED RINGERS SOLUTION 1,000 ML/1,000 ML INFUS.BAG IV SCH ×4 (10:00→23:23)
[2022-12-15] MEDS: POLYETHYLENE GLYCOL (HEALTHYLAX) 3350 17 GM PACKET PO SCH (12:06)
[2022-12-15] MEDS: LIDOCAINE 5% TOPICAL PATCH TP SCH (12:06)
[2022-12-15] MEDS: CEFTRIAXONE 2 GM in DEXTROSE 5%-WATER 100 ML IVPB SCH (12:21)
[2022-12-15 17:33] LABS: BASO % 0.4 % (0-2.0); HEMATOCRIT 47.3 % (35.4-49); LYMPH % 4.1 % (8-40); MCH 27.7 pg (25.7-33.7); MCHC 33.8 g/dl (32.0-35.9); MEAN CELL VOLUME 81.9 fl (80-96); MEAN PLT VOLUME 9.6 fl (7.5-11.1); MONO % 5.8 % (3.8-10.2); NEUT % 89.7 % (42.8-82.8); PLATELET COUNT 362 10^3/uL (134-434); RBC 5.77 M/mm3 (4.00-5.60); RDW 14.6 % (11.9-15.9); WHITE BLOOD COUNT 14.5 K/mm3 (4.0-10.0)
[2022-12-15 17:41] LABS: INR 1.15 (0.83-1.09); PROTHROMBIN TIME (PATIENT) 13.3 SEC (9.7-13.0)
[2022-12-15 18:04] LABS: POTASSIUM 4.8 mmol/L (3.5-5.1)
[2022-12-15 18:07] LABS: CALCIUM 9.8 mg/dL (8.5-10.1)
[2022-12-15 18:08] LABS: ALBUMIN 3.6 g/dl (3.4-5.0); BLOOD UREA NITROGEN 13.4 mg/dL (7-18); MAGNESIUM 2.2 mg/dL (1.8-2.4)
[2022-12-15 18:11] LABS: CREATININE 0.9 mg/dL (0.55-1.3)
[2022-12-15 18:12] LABS: BILIRUBIN,TOTAL 3.7 mg/dL (0.2-1); TOT PROT 6.7 g/dl (6.4-8.2)
[2022-12-15 19:07] LABS: BASO % 0.3 % (0-2.0); HEMATOCRIT 44.1 % (35.4-49); HEMOGLOBIN 15.2 GM/dL (11.7-16.9); LYMPH % 4.1 % (8-40); MCH 28.1 pg (25.7-33.7); MCHC 34.4 g/dl (32.0-35.9); MEAN CELL VOLUME 81.9 fl (80-96); MEAN PLT VOLUME 10.1 fl (7.5-11.1); MONO % 6.4 % (3.8-10.2); NEUT % 89.2 % (42.8-82.8); PLATELET COUNT 292 10^3/uL (134-434); RBC 5.39 M/mm3 (4.00-5.60); RDW 14.1 % (11.9-15.9); WHITE BLOOD COUNT 13.9 K/mm3 (4.0-10.0)
[2022-12-15 19:23] LABS: CHLORIDE 102 mmol/L (98-107); POTASSIUM 4.4 mmol/L (3.5-5.1); SODIUM 136 mmol/L (136-145)
[2022-12-15 19:27] LABS: ANION GAP 7 MMOL/L (8-16); BLOOD UREA NITROGEN 14.6 mg/dL (7-18); CALCIUM 9.2 mg/dL (8.5-10.1); CO2 26 mmol/L (21-32)
[2022-12-15 19:28] LABS: GLUCOSE,RANDOM 142 mg/dL (74-106)
[2022-12-15 19:30] LABS: CREATININE 0.8 mg/dL (0.55-1.3)
[2022-12-15 19:31] LABS: SGOT/AST 82 U/L (15-37); SGPT/ALT 354 U/L (13-61)
[2022-12-15 19:32] LABS: BILIRUBIN,TOTAL 2.6 mg/dL (0.2-1); TOT PROT 5.7 g/dl (6.4-8.2)
[2022-12-15 19:53] LABS: ALK PHOS 380 U/L (45-117); AMYLASE > 1300 U/L (25-115); LIPASE 15157 U/L (73-393)
[2022-12-15] MEDS ORDERED: ONDANSETRON 4 MG/2 ML VIAL IVPUSH PRN ×3 (21:00→23:23)
[2022-12-15] MEDS ORDERED: PROMETHAZINE HCL 25 MG/1 ML VIAL IVPB PRN ×2 (21:00→23:23)
[2022-12-15] MEDS ORDERED: LACTATED RINGERS SOLUTION 1,000 ML IV SCH ×2 (21:00→23:23)
[2022-12-15] MEDS ORDERED: EPINEPHrine 1:10,000 (P-F SYR) 1 MG/10 ML DISP.SYRIN ONE (21:18)
[2022-12-15] MEDS: LIDOCAINE PATCH REMOVAL MC SCH (21:25)
[2022-12-15] MEDS ORDERED: MUPIROCIN 2% TOPICAL OINTMENT FOR DECOLONIZATION NS SCH ×2 (23:30→23:45)
[2022-12-15 23:35] LABS: BASO % 0.5 % (0-2.0); EOS % 0.1 % (0-4.5); HEMATOCRIT 42.9 % (35.4-49); HEMOGLOBIN 14.2 GM/dL (11.7-16.9); LYMPH % 7.2 % (8-40); MCH 27.2 pg (25.7-33.7); MCHC 33.1 g/dl (32.0-35.9); MEAN CELL VOLUME 82.2 fl (80-96); MEAN PLT VOLUME 9.2 fl (7.5-11.1); MONO % 6.6 % (3.8-10.2); NEUT % 85.6 % (42.8-82.8); PLATELET COUNT 297 10^3/uL (134-434); RBC 5.22 M/mm3 (4.00-5.60); WHITE BLOOD COUNT 16.8 K/mm3 (4.0-10.0)
[2022-12-16] MEDS ORDERED: ONDANSETRON 4 MG/2 ML VIAL IVPUSH PRN ×2 (00:01)
[2022-12-16] MEDS ORDERED: PROMETHAZINE HCL 25 MG/1 ML VIAL IVPB PRN (00:01)
[2022-12-16] MEDS ORDERED: LACTATED RINGERS SOLUTION 1,000 ML IV SCH (00:01)
[2022-12-16] MEDS ORDERED: LACTATED RINGERS SOLUTION 1,000 ML/1,000 ML INFUS.BAG IV SCH ×3 (00:01→10:00)
[2022-12-16 03:10] LABS: BASO % 0.4 % (0-2.0); EOS % 0.1 % (0-4.5); HEMATOCRIT 43.8 % (35.4-49); HEMOGLOBIN 14.6 GM/dL (11.7-16.9); LYMPH % 12.1 % (8-40); MCH 27.3 pg (25.7-33.7); MCHC 33.3 g/dl (32.0-35.9); MEAN CELL VOLUME 82.1 fl (80-96); MEAN PLT VOLUME 9.5 fl (7.5-11.1); NEUT % 80.4 % (42.8-82.8); PLATELET COUNT 296 10^3/uL (134-434); RBC 5.33 M/mm3 (4.00-5.60); RDW 14.1 % (11.9-15.9); WHITE BLOOD COUNT 14.3 K/mm3 (4.0-10.0)
[2022-12-16 07:53] LABS: BASO % 0.4 % (0-2.0); EOS % 0.3 % (0-4.5); HEMATOCRIT 39.1 % (35.4-49); HEMOGLOBIN 13.5 GM/dL (11.7-16.9); LYMPH % 11.8 % (8-40); MCH 28.1 pg (25.7-33.7); MCHC 34.4 g/dl (32.0-35.9); MEAN CELL VOLUME 81.8 fl (80-96); MONO % 8.1 % (3.8-10.2); NEUT % 79.4 % (42.8-82.8); PLATELET COUNT 276 10^3/uL (134-434); RBC 4.78 M/mm3 (4.00-5.60); RDW 14.3 % (11.9-15.9); WHITE BLOOD COUNT 12.9 K/mm3 (4.0-10.0)
[2022-12-16] MEDS ORDERED: EPINEPHrine 1:10,000 (P-F SYR) 1 MG/10 ML DISP.SYRIN ONE (08:01)
[2022-12-16 08:18] LABS: INR 1.23 (0.83-1.09); PROTHROMBIN TIME (PATIENT) 14.2 SEC (9.7-13.0)
[2022-12-16 08:56] LABS: POTASSIUM 4.3 mmol/L (3.5-5.1)
[2022-12-16 09:00] LABS: CALCIUM 8.7 mg/dL (8.5-10.1); MAGNESIUM 1.9 mg/dL (1.8-2.4)
[2022-12-16 09:01] LABS: ALBUMIN 2.8 g/dl (3.4-5.0); BLOOD UREA NITROGEN 18.7 mg/dL (7-18)
[2022-12-16 09:02] LABS: CREATININE 0.8 mg/dL (0.55-1.3)
[2022-12-16 09:03] LABS: BILIRUBIN,DIRECT 1.2 mg/dL (0.0-0.2)
[2022-12-16 09:04] LABS: PHOSPHOROUS 4.6 mg/dL (2.5-4.9); TOT PROT 4.9 g/dl (6.4-8.2)
[2022-12-16 09:05] LABS: BILIRUBIN,TOTAL 1.8 mg/dL (0.2-1)
[2022-12-16] MEDS: CEFTRIAXONE 2 GM in DEXTROSE 5%-WATER 100 ML IVPB SCH (09:47)
[2022-12-16] MEDS ORDERED: ENOXAPARIN NA (PORCINE) 40 MG/0.4 ML DISP.SYRIN SQ SCH (10:00)
[2022-12-16] MEDS ORDERED: CEFTRIAXONE 2 GM in DEXTROSE 5%-WATER 100 ML IVPB SCH (10:00)
[2022-12-16] MEDS ORDERED: MUPIROCIN 2% TOPICAL OINTMENT FOR DECOLONIZATION NS SCH (10:00)
[2022-12-16 15:26] LABS: BASO % 0.6 % (0-2.0); EOS % 0.3 % (0-4.5); HEMATOCRIT 38.9 % (35.4-49); HEMOGLOBIN 13.3 GM/dL (11.7-16.9); LYMPH % 9.5 % (8-40); MCH 28.1 pg (25.7-33.7); MCHC 34.3 g/dl (32.0-35.9); MEAN CELL VOLUME 82.1 fl (80-96); MEAN PLT VOLUME 9.9 fl (7.5-11.1); MONO % 6.5 % (3.8-10.2); NEUT % 83.1 % (42.8-82.8); PLATELET COUNT 263 10^3/uL (134-434); RBC 4.74 M/mm3 (4.00-5.60); RDW 14.3 % (11.9-15.9); WHITE BLOOD COUNT 15.3 K/mm3 (4.0-10.0)
[2022-12-16] MEDS: LACTATED RINGERS SOLUTION 1,000 ML IV SCH ×2 (18:03→21:10)
[2022-12-16] MEDS ORDERED: PANTOPRAZOLE SODIUM 40 MG VIAL IVPUSH SCH (19:30)
[2022-12-16] MEDS: CHLORHEXIDINE GLUCONATE 4% CLEANSER FOR DECOLONIZATION TP SCH (21:10)
[2022-12-16] MEDS ORDERED: CHLORHEXIDINE GLUCONATE 4% CLEANSER FOR DECOLONIZATION TP SCH ×2 (22:00)
[2022-12-17 07:41] LABS: BASO % 0.3 % (0-2.0); EOS % 0.7 % (0-4.5); HEMATOCRIT 32.6 % (35.4-49); HEMOGLOBIN 11.1 GM/dL (11.7-16.9); LYMPH % 9.3 % (8-40); MCH 28.1 pg (25.7-33.7); MEAN CELL VOLUME 82.8 fl (80-96); MEAN PLT VOLUME 10.2 fl (7.5-11.1); MONO % 7.7 % (3.8-10.2); PLATELET COUNT 223 10^3/uL (134-434); RBC 3.93 M/mm3 (4.00-5.60)
[2022-12-17 07:58] LABS: POTASSIUM 3.7 mmol/L (3.5-5.1)
[2022-12-17 08:06] LABS: ALBUMIN 2.4 g/dl (3.4-5.0); CALCIUM 7.6 mg/dL (8.5-10.1)
[2022-12-17 08:07] LABS: MAGNESIUM 1.6 mg/dL (1.8-2.4)
[2022-12-17 08:09] LABS: CREATININE 0.4 mg/dL (0.55-1.3)
[2022-12-17 08:11] LABS: TOT PROT 4.6 g/dl (6.4-8.2)
[2022-12-17 08:13] LABS: BILIRUBIN,TOTAL 1.5 mg/dL (0.2-1)
[2022-12-17 08:18] LABS: PHOSPHOROUS 4.2 mg/dL (2.5-4.9)
[2022-12-17] MEDS: LACTATED RINGERS SOLUTION 1,000 ML IV SCH ×2 (09:58→23:30)
[2022-12-17] MEDS ORDERED: PANTOPRAZOLE SODIUM 40 MG VIAL IVPUSH SCH (10:00)
[2022-12-17] MEDS ORDERED: LACTATED RINGERS SOLUTION 1,000 ML/1,000 ML INFUS.BAG IV SCH ×3 (10:00)
[2022-12-17] MEDS: CEFTRIAXONE 2 GM in DEXTROSE 5%-WATER 100 ML IVPB SCH (10:06)
[2022-12-17 11:00] LABS: BILIRUBIN,DIRECT 0.8 mg/dL (0.0-0.2)
[2022-12-17 12:16] LABS: BASO % 0.4 % (0-2.0); EOS % 0.5 % (0-4.5); HEMATOCRIT 37.9 % (35.4-49); HEMOGLOBIN 12.6 GM/dL (11.7-16.9); LYMPH % 10.6 % (8-40); MCH 27.8 pg (25.7-33.7); MCHC 33.3 g/dl (32.0-35.9); MEAN CELL VOLUME 83.5 fl (80-96); MEAN PLT VOLUME 10.3 fl (7.5-11.1); MONO % 6.6 % (3.8-10.2); NEUT % 81.9 % (42.8-82.8); PLATELET COUNT 243 10^3/uL (134-434); RBC 4.53 M/mm3 (4.00-5.60); RDW 14.2 % (11.9-15.9); WHITE BLOOD COUNT 14.4 K/mm3 (4.0-10.0)
[2022-12-17] MEDS ORDERED: ACETAMINOPHEN 325 MG TABLET (FP) PO PRN (16:01)
[2022-12-17] MEDS: CHLORHEXIDINE GLUCONATE 4% CLEANSER FOR DECOLONIZATION TP SCH (21:21)
[2022-12-18] MEDS: LACTATED RINGERS SOLUTION 1,000 ML IV SCH ×2 (06:20→21:26)
[2022-12-18 08:34] LABS: BASO % 0.4 % (0-2.0); HEMATOCRIT 32.7 % (35.4-49); HEMOGLOBIN 10.9 GM/dL (11.7-16.9); LYMPH % 11.1 % (8-40); MCH 27.8 pg (25.7-33.7); MCHC 33.4 g/dl (32.0-35.9); MEAN CELL VOLUME 83.2 fl (80-96); MEAN PLT VOLUME 10.4 fl (7.5-11.1); MONO % 7.3 % (3.8-10.2); NEUT % 80.2 % (42.8-82.8); PLATELET COUNT 242 10^3/uL (134-434); RBC 3.92 M/mm3 (4.00-5.60); RDW 13.9 % (11.9-15.9); WHITE BLOOD COUNT 13.9 K/mm3 (4.0-10.0)
[2022-12-18] MEDS: CEFTRIAXONE 2 GM in DEXTROSE 5%-WATER 100 ML IVPB SCH (09:25)
[2022-12-18] MEDS ORDERED: PANTOPRAZOLE SODIUM 40 MG VIAL IVPUSH SCH (10:00)
[2022-12-18] MEDS ORDERED: LACTATED RINGERS SOLUTION 1,000 ML IV SCH (10:08)
[2022-12-18 12:11] LABS: BASO % 0.6 % (0-2.0); EOS % 0.8 % (0-4.5); HEMATOCRIT 35.8 % (35.4-49); HEMOGLOBIN 11.9 GM/dL (11.7-16.9); LYMPH % 7.4 % (8-40); MCH 27.8 pg (25.7-33.7); MCHC 33.2 g/dl (32.0-35.9); MEAN CELL VOLUME 83.6 fl (80-96); MONO % 6.8 % (3.8-10.2); NEUT % 84.4 % (42.8-82.8); PLATELET COUNT 274 10^3/uL (134-434); RBC 4.28 M/mm3 (4.00-5.60); RDW 14.2 % (11.9-15.9); WHITE BLOOD COUNT 16.2 K/mm3 (4.0-10.0)
[2022-12-18] MEDS ORDERED: ACETAMINOPHEN 325 MG TABLET (FP) PO ONE (12:45)
[2022-12-18] MEDS: PIPERACILLIN/TAZOB 3.375 GM 3.375 GM in DEXTROSE 5%-WATER - 50 ML IVPB SCH ×2 (14:30→18:59)
[2022-12-18 15:49] LABS: HEMATOCRIT 31.2 % (35.4-49); HEMOGLOBIN 10.7 GM/dL (11.7-16.9); MCH 28.7 pg (25.7-33.7); MCHC 34.3 g/dl (32.0-35.9); MEAN CELL VOLUME 83.7 fl (80-96); MEAN PLT VOLUME 10.1 fl (7.5-11.1); PLATELET COUNT 245 10^3/uL (134-434); RBC 3.73 M/mm3 (4.00-5.60); RDW 13.9 % (11.9-15.9); WHITE BLOOD COUNT 13.8 K/mm3 (4.0-10.0)
[2022-12-18] MEDS ORDERED: ONDANSETRON 4 MG/2 ML VIAL IVPUSH PRN (20:04)
[2022-12-18] MEDS ORDERED: CHLORHEXIDINE GLUCONATE 4% CLEANSER FOR DECOLONIZATION TP SCH (22:00)
[2022-12-19] MEDS: PIPERACILLIN/TAZOB 3.375 GM 3.375 GM in DEXTROSE 5%-WATER - 50 ML IVPB SCH ×3 (01:19→17:09)
[2022-12-19 08:16] LABS: BASO % 0.5 % (0-2.0); EOS % 1.6 % (0-4.5); HEMATOCRIT 33.4 % (35.4-49); HEMOGLOBIN 11.1 GM/dL (11.7-16.9); LYMPH % 8.3 % (8-40); MCH 27.6 pg (25.7-33.7); MCHC 33.3 g/dl (32.0-35.9); MEAN CELL VOLUME 83.1 fl (80-96); MEAN PLT VOLUME 9.8 fl (7.5-11.1); MONO % 7.6 % (3.8-10.2); PLATELET COUNT 292 10^3/uL (134-434); RBC 4.02 M/mm3 (4.00-5.60); RDW 14.2 % (11.9-15.9); WHITE BLOOD COUNT 12.7 K/mm3 (4.0-10.0)
[2022-12-19 08:36] LABS: POTASSIUM 3.7 mmol/L (3.5-5.1)
[2022-12-19 08:44] LABS: ALBUMIN 2.7 g/dl (3.4-5.0); BLOOD UREA NITROGEN 5.7 mg/dL (7-18); CALCIUM 8.2 mg/dL (8.5-10.1); CREATININE 0.5 mg/dL (0.55-1.3)
[2022-12-19 08:45] LABS: BILIRUBIN,TOTAL 1.1 mg/dL (0.2-1); MAGNESIUM 2.2 mg/dL (1.8-2.4); TOT PROT 5.3 g/dl (6.4-8.2)
[2022-12-19 08:47] LABS: PHOSPHOROUS 3.6 mg/dL (2.5-4.9)
[2022-12-19] MEDS: LACTATED RINGERS SOLUTION 1,000 ML IV SCH ×2 (09:18→14:12)
[2022-12-19] MEDS: PANTOPRAZOLE SODIUM 40 MG VIAL IVPUSH SCH (09:47)
[2022-12-20] MEDS: PIPERACILLIN/TAZOB 3.375 GM 3.375 GM in DEXTROSE 5%-WATER - 50 ML IVPB SCH ×3 (02:06→17:39)
[2022-12-20] MEDS: LACTATED RINGERS SOLUTION 1,000 ML IV SCH ×2 (03:08→15:38)
[2022-12-20 08:16] LABS: BASO % 0.4 % (0-2.0); EOS % 1.7 % (0-4.5); HEMATOCRIT 35.5 % (35.4-49); HEMOGLOBIN 11.6 GM/dL (11.7-16.9); LYMPH % 12.5 % (8-40); MCH 27.2 pg (25.7-33.7); MCHC 32.6 g/dl (32.0-35.9); MEAN CELL VOLUME 83.5 fl (80-96); MEAN PLT VOLUME 9.1 fl (7.5-11.1); MONO % 6.1 % (3.8-10.2); NEUT % 79.3 % (42.8-82.8); PLATELET COUNT 366 10^3/uL (134-434); RBC 4.24 M/mm3 (4.00-5.60); RDW 14.3 % (11.9-15.9); WHITE BLOOD COUNT 15.4 K/mm3 (4.0-10.0)
[2022-12-20 08:37] LABS: POTASSIUM 4.3 mmol/L (3.5-5.1)
[2022-12-20 08:41] LABS: CALCIUM 8.8 mg/dL (8.5-10.1)
[2022-12-20 08:42] LABS: ALBUMIN 2.9 g/dl (3.4-5.0); MAGNESIUM 2.2 mg/dL (1.8-2.4)
[2022-12-20 08:44] LABS: CREATININE 0.6 mg/dL (0.55-1.3)
[2022-12-20 08:45] LABS: PHOSPHOROUS 4.3 mg/dL (2.5-4.9)
[2022-12-20 08:46] LABS: TOT PROT 5.9 g/dl (6.4-8.2)
[2022-12-20] MEDS: PANTOPRAZOLE SODIUM 40 MG VIAL IVPUSH SCH (10:17)
[2022-12-21] MEDS: PIPERACILLIN/TAZOB 3.375 GM 3.375 GM in DEXTROSE 5%-WATER - 50 ML IVPB SCH ×3 (01:07→17:08)
[2022-12-21] MEDS ORDERED: IRON SUCROSE INJECTION 200 MG in SODIUM CHLORIDE 90 ML IVPB ONE (06:00)
[2022-12-21] MEDS ORDERED: ACETAMINOPHEN 1000 MG/100 ML BAG IVPB PRN (09:04)
[2022-12-21] MEDS ORDERED: KETOROLAC TROMETHAMINE 30 MG/1 ML VIAL IM PRN (09:04)
[2022-12-21] MEDS: PANTOPRAZOLE 40 MG TABLET PO SCH (09:26)
[2022-12-21 10:31] LABS: BASO % 0.5 % (0-2.0); EOS % 1.7 % (0-4.5); HEMATOCRIT 34.7 % (35.4-49); HEMOGLOBIN 11.7 GM/dL (11.7-16.9); LYMPH % 13.2 % (8-40); MCHC 33.8 g/dl (32.0-35.9); MEAN CELL VOLUME 82.9 fl (80-96); MONO % 4.6 % (3.8-10.2); PLATELET COUNT 429 10^3/uL (134-434); RBC 4.19 M/mm3 (4.00-5.60); RDW 14.2 % (11.9-15.9); WHITE BLOOD COUNT 12.4 K/mm3 (4.0-10.0)
[2022-12-21 11:07] LABS: POTASSIUM 4.4 mmol/L (3.5-5.1)
[2022-12-21 11:13] LABS: CALCIUM 8.8 mg/dL (8.5-10.1)
[2022-12-21 11:15] LABS: BLOOD UREA NITROGEN 9.7 mg/dL (7-18); MAGNESIUM 2.3 mg/dL (1.8-2.4)
[2022-12-21 11:18] LABS: CREATININE 0.6 mg/dL (0.55-1.3); PHOSPHOROUS 4.1 mg/dL (2.5-4.9)
[2022-12-21 11:20] LABS: BILIRUBIN,TOTAL 0.9 mg/dL (0.2-1); TOT PROT 6.1 g/dl (6.4-8.2)
[2022-12-22] MEDS: PIPERACILLIN/TAZOB 3.375 GM 3.375 GM in DEXTROSE 5%-WATER - 50 ML IVPB SCH ×2 (01:55→09:37)
[2022-12-22 08:11] LABS: BASO % 0.6 % (0-2.0); EOS % 2.5 % (0-4.5); HEMATOCRIT 34.9 % (35.4-49); HEMOGLOBIN 11.7 GM/dL (11.7-16.9); LYMPH % 16.2 % (8-40); MCH 27.8 pg (25.7-33.7); MCHC 33.6 g/dl (32.0-35.9); MEAN CELL VOLUME 82.7 fl (80-96); MEAN PLT VOLUME 8.8 fl (7.5-11.1); MONO % 6.8 % (3.8-10.2); NEUT % 73.9 % (42.8-82.8); PLATELET COUNT 459 10^3/uL (134-434); RBC 4.22 M/mm3 (4.00-5.60); RDW 14.2 % (11.9-15.9); WHITE BLOOD COUNT 12.1 K/mm3 (4.0-10.0)
[2022-12-22 08:24] LABS: POTASSIUM 4.4 mmol/L (3.5-5.1)
[2022-12-22 08:28] LABS: ALBUMIN 3.1 g/dl (3.4-5.0); BLOOD UREA NITROGEN 11.4 mg/dL (7-18); MAGNESIUM 2.4 mg/dL (1.8-2.4)
[2022-12-22 08:31] LABS: CREATININE 0.6 mg/dL (0.55-1.3); PHOSPHOROUS 4.8 mg/dL (2.5-4.9)
[2022-12-22 08:32] LABS: BILIRUBIN,TOTAL 0.9 mg/dL (0.2-1); TOT PROT 6.4 g/dl (6.4-8.2)
[2022-12-22 08:35] VITALS: RESP 18
[2022-12-22] MEDS: PANTOPRAZOLE 40 MG TABLET PO SCH (09:37)
[2022-12-22] MEDS ORDERED: IRON SUCROSE INJECTION 200 MG in SODIUM CHLORIDE 90 ML IVPB ONE (10:00)
[2022-12-22 14:43] VITALS: BP 125/80; PULSE 94; TEMP 99
== END 2022-12-22 15:31 | disposition home or self-care (01) | DRG 417 ==
LOC: JER 04:59 → JERBED 05:34 → J8W 16:27 → JICU 12-16 00:16 → J7W 12-18 16:21
PROVIDERS: ADMIT Internal Medicine; ATTEND Internal Medicine
PROC: 0FT44ZZ Resection of Gallbladder, Percutaneous Endoscopic Approach (ICD-10-PCS; principal; 2022-12-10 11:00)
PROC: 0FC98ZZ Extirpation of Matter from Common Bile Duct, Via Natural or Artificial Opening Endoscopic (ICD-10-PCS; 2022-12-15)
PROC: 0F798DZ Dilation of Common Bile Duct with Intraluminal Device, Via Natural or Artificial Opening Endoscopic (ICD-10-PCS; 2022-12-15)
PROC: 0W3P8ZZ Control Bleeding in Gastrointestinal Tract, Via Natural or Artificial Opening Endoscopic (ICD-10-PCS; 2022-12-15)
PROC: 3E0G8GC Introduction of Other Therapeutic Substance into Upper GI, Via Natural or Artificial Opening Endoscopic (ICD-10-PCS; 2022-12-15)
DX: K80.00 Calculus of gallbladder with acute cholecystitis without obstruction (principal); K85.90 Acute pancreatitis without necrosis or infection, unspecified; K91.840 Postprocedural hemorrhage of a digestive system organ or structure following a digestive system procedure; I97.42 Intraoperative hemorrhage and hematoma of a circulatory system organ or structure complicating other procedure; K92.2 Gastrointestinal hemorrhage, unspecified; Z68.41 Body mass index [BMI] 40.0-44.9, adult; D62 Acute posthemorrhagic anemia; J98.11 Atelectasis; J90 Pleural effusion, not elsewhere classified; K76.0 Fatty (change of) liver, not elsewhere classified; E66.01 Morbid (severe) obesity due to excess calories; R74.01 Elevation of levels of liver transaminase levels; D72.829 Elevated white blood cell count, unspecified; Y84.8 Other medical procedures as the cause of abnormal reaction of the patient, or of later complication, without mention of misadventure at the time of the procedure; Y82.8 Other medical devices associated with adverse incidents; G47.33 Obstructive sleep apnea (adult) (pediatric); E78.5 Hyperlipidemia, unspecified; K21.9 Gastro-esophageal reflux disease without esophagitis; I10 Essential (primary) hypertension; K80.50 Calculus of bile duct without cholangitis or cholecystitis without obstruction
CPT/HCPCS: 36415; 71045-TC-FY; 71250-TC; 74177-TC; 74181-TC; 74330-TC; 80048; 80053; 80076; 81003; 82150; 82248; 82550; 82728; 83540; 83550; 83605; 83690; 83735; 84100; 85025; 85027; 85045; 85610; 85730; 86140; 86850; 86900; 86901; 86922; 87040; 87086; 88304-TC; 93005; 93010; 94760; 97116-GP; 97161-GP; 99285-25; C9803-CS; J1756; Q9967; U0003; U0005

== ENCOUNTER 2023-05-07 05:04 | Day surgery (SDC) | payer BC ==
[2023-05-05 14:13] VITALS: BMI 38.2
[2023-05-07] MEDS ORDERED: FENTANYL CITRATE/PF 50 MCG/ML VIAL ONE (08:06)
[2023-05-07] MEDS ORDERED: MIDAZOLAM HCL 2 MG/2 ML SINGLE DOSE VIAL ONE (08:07)
[2023-05-07] MEDS ORDERED: CEFAZOLIN SODIUM 2 GM VIAL ONE (08:55)
[2023-05-07 09:17] VITALS: TEMP 97.8
[2023-05-07 10:23] VITALS: PULSE 51; RESP 12
[2023-05-07 10:29] VITALS: BP 120/71
== END 2023-05-07 10:45 | disposition home or self-care (01) ==
LOC: JASU-ENDO 05:04
PROVIDERS: ATTEND Internal Medicine Gastroenterology
PROC: 0FPD8DZ Removal of Intraluminal Device from Pancreatic Duct, Via Natural or Artificial Opening Endoscopic (ICD-10-PCS; 2023-05-07)
PROC: 0FC98ZZ Extirpation of Matter from Common Bile Duct, Via Natural or Artificial Opening Endoscopic (ICD-10-PCS; principal; 2023-05-07 08:00)
DX: K80.51 Calculus of bile duct without cholangitis or cholecystitis with obstruction (principal); K91.89 Other postprocedural complications and disorders of digestive system
CPT/HCPCS: 76000-TC-FY; 88300-TC